=== PATIENT | male | born 1955 | race Caucasian/White ===

== ENCOUNTER 2017-06-17 16:15 | Emergency (ER) | payer BC, OTHER ==
[2017-06-17] MEDS ORDERED: DIPH,PERTUS(ACELL)TETVAC-LF 0.5 ML VIAL IM ONE (16:39)
--- NOTE | 2017-06-17 16:39 | ED ---
Wound/Laceration HPI - General Chief Complaint: Wound/Laceration Stated Complaint: rt arm injury/puncture Time Seen by Provider: 06/17/17 16:24 Source: patient, RN notes reviewed, old records reviewed Mode of arrival: ambulatory Limitations: no limitations - History of Present Illness Initial Comments: 61-year-old male presents emergency department with right forearm pain. Patient reports he was walking the dog and the dog lurched forward. He reports that his forearm got pulled forward and impaled by something. He thinks it was a tree. Patient states that he's had some pain with flexion and extension of the forearm and wrist. Patient denies any elbow pain. He reports he has some abnormal numbness or tingling going down his arm. Patient denies any thought of when his last tetanus was. He wants to have a repeat repeated today. Patient denies any other associated pain. - Related Data Previous Rx's Medication Instructions Recorded Cephalexin [Keflex] 500 mg PO Q6HR #28 cap 06/17/17 Allergies Allergy/AdvReac Type Severity Reaction Status Date / Time No Known Allergies Allergy Verified 06/17/17 16:23 Review of Systems ROS Statement: Those systems with pertinent positive or pertinent negative responses have been documented in the HPI. ROS Other: All systems not noted in ROS Statement are negative. Past Medical History Past Medical History: Hypertension History of Any Multi-Drug Resistant Organisms: None Reported Past Surgical History: Appendectomy, Orthopedic Surgery Additional Past Surgical History / Comment(s): shoulder, knee Past Psychological History: No Psychological Hx Reported Smoking Status: Never smoker Past Alcohol Use History: Daily Past Drug Use History: None Reported General Exam - General Exam Comments Initial Comments: 61-year-old male. No acute distress. Limitations: no limitations General appearance: alert, in no apparent distress Head exam: Present: atraumatic, normocephalic, normal inspection Eye exam: Present: normal appearance, PERRL, EOMI. Absent: scleral icterus, conjunctival injection, periorbital swelling ENT exam: Present: normal exam, mucous membranes moist Neck exam: Present: normal inspection. Absent: tenderness, meningismus, lymphadenopathy Respiratory exam: Present: normal lung sounds bilaterally. Absent: respiratory distress, wheezes, rales, rhonchi, stridor Cardiovascular Exam: Present: regular rate, normal rhythm, normal heart sounds. Absent: systolic murmur, diastolic murmur, rubs, gallop, clicks GI/Abdominal exam: Present: soft, normal bowel sounds. Absent: distended, tenderness, guarding, rebound, rigid Extremities exam: Present: normal inspection, full ROM, normal capillary refill , other (Patient has a laceration over the right forearm measuring approximately 4 cm. Some significant swelling and muscle involvement noted.). Absent: tenderness, pedal edema, joint swelling, calf tenderness Back exam: Present: normal inspection Neurological exam: Present: alert, oriented X3, CN II-XII intact Psychiatric exam: Present: normal affect, normal mood Course Vital Signs 06/17/17 16:17 Temperature 98.4 F Pulse Rate 83 Respiratory 18 Rate Blood Pressure 167/80 O2 Sat by Pulse 100 Oximetry Disposition Clinical Impression: Laceration of right forearm, Brachioradialis muscle tenderness, Hematoma Disposition: HOME SELF-CARE Condition: Good Instructions: Laceration (ED) Additional Instructions: Patient advised to follow with orthopedic physician in regards to muscle tear. Please return to the emergency room in 8-10 days to have sutures removed. Please leave wound covered for the first 24-48 hours and then leave open to air after that time. Please use clean soap and water to clean the suture area to prevent scabbing over the top of your sutures. Please watch for any signs of infection which may include but not limited to increased pain, swelling, redness , fever or chills. Please return to the emergency room if any signs of infection do occur. Please return to the emergency room for any other concerns or complications. Prescriptions: Cephalexin [Keflex] 500 mg PO Q6HR #28 cap Referrals: Robert Vega DO [Primary Care Provider] - 1-2 days Alexis Villar DO [Doctor of Osteopathic Medicine] - 1-2 days Time of Disposition: 17:26
--- NOTE | 2017-06-17 17:17 | XR ---
EXAMINATION TYPE: XR forearm RT DATE OF EXAM: 06/17/2017 CLINICAL HISTORY: Fall injury with pain. Open wound injury right proximal forearm. TECHNIQUE: Two views of the right forearm are obtained. COMPARISON: None. FINDINGS: There is no acute fracture or dislocation seen in the right radius or ulna. 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 The overlying soft tissue appears within normal limits without suspic ious radiodense foreign body seen. IMPRESSION: There is no acute fracture or dislocation seen in the right radius or ulna.
[2017-06-17] MEDS ORDERED: CEPHALEXIN 500MG STARTER PACK 4 CAP BTL PO STA (17:25)
[2017-06-17 17:37] VITALS: BP 166/68; PULSE 84; RESP 16; TEMP 98.2
== END 2017-06-17 17:36 | disposition home or self-care (01) ==
LOC: EC 16:15
DX: S51.811A Laceration without foreign body of right forearm, initial encounter (principal); S46.911A Strain of unspecified muscle, fascia and tendon at shoulder and upper arm level, right arm, initial encounter; Z23 Encounter for immunization; W19.XXXA Unspecified fall, initial encounter; Y93.K1 Activity, walking an animal
CPT/HCPCS: 90471; 90715; 99283

== ENCOUNTER → 2018-11-09 | Outpatient (CLI) | payer BC ==
--- NOTE | 2018-11-09 12:00 | P.STRESS ---
- Stress Test Note Stress Test Results/Findings: Exam Performed: stress echo exercise with con Exam Date: 11/09/18 Reason for Exam: FAMILY HX Height: 6 ft 1 in Weight: 95.254 kg Protocol: MORENITA Stage: 3 Duration of Exercise: 9:00 Resting Heart Rate: 70 Resting Blood Pressure: 144/57 Maximum Achieved Heart Rate: 157 Maximum Achieved Blood Pressure: 211/50 85% PMHR: 133 100% PMHR: 157 METS: 10.3 Technologist Comment: Stress Test Results/Findings: Baseline heart rate 70 beats a minute Baseline blood pressure 144/57 mmHg baseline 12-lead ECG shows sinus rhythm narrow QRS normal ST segments occasional PACs Patient exercised on a Morenita protocol for 9 minutes achieving a peak heart rate of 157 beats a minute. Mildly hypertensive response to exercise with a peak systolic blood pressure of 211 mmHg There is no ECG evidence for ischemia Baseline 2-D echo showed normal LV systolic function without segmental wall motion abnormalities At peak exercise there was excellent augmentation of over 1150 without development of any wall motion abnormalities At the recovery, no echocardiographic evidence for ischemia Impression Good exercise capacity on a Morenita protocol without ECG or echocardiographic evidence for ischemia
== END | disposition home or self-care (01) ==
LOC: RADNMMAIN 08:52
PROVIDERS: ATTEND Family Medicine
DX: Z13.6 Encounter for screening for cardiovascular disorders (principal); Z82.49 Family history of ischemic heart disease and other diseases of the circulatory system
CPT/HCPCS: 93005; 93351

== ENCOUNTER 2018-12-31 18:57 | Emergency (ER) | payer BC ==
[2018-12-31 19:22] VITALS: BP 162/92; PULSE 66; RESP 18; TEMP 98.6
--- NOTE | 2018-12-31 19:49 | ED ---
Fall HPI - General Chief Complaint: Fall Stated Complaint: back injury Time Seen by Provider: 12/31/18 19:48 Source: patient, RN notes reviewed, old records reviewed Mode of arrival: ambulatory - History of Present Illness Initial Comments: This is a 63-year-old male the ER for evaluation. Patient presents today for evaluation status post fall with rib and left shoulder pain. This was while trying to catch a controlled from a family mother. Patient again admits pain. 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 Witnessed: yes, by family Place Fall Occurred: home Loss of Consciousness: none Prolonged Down Time?: no Symptoms Prior to Fall: none Location: chest Severity: severe Severity scale (1-10): 7 Quality: sharp, stabbing Context: tripped/slipped Associated Symptoms: denies - Related Data Home Medications Medication Instructions Recorded Confirmed Doxylamine Succinate [Unisom] 25 mg PO HS 12/31/18 12/31/18 Losartan [Cozaar] 50 mg PO DAILY 12/31/18 12/31/18 Allergies Allergy/AdvReac Type Severity Reaction Status Date / Time No Known Allergies Allergy Verified 12/31/18 19:43 Review of Systems ROS Statement: Those systems with pertinent positive or pertinent negative responses have been documented in the HPI. ROS Other: All systems not noted in ROS Statement are negative. Past Medical History Past Medical History: Hypertension History of Any Multi-Drug Resistant Organisms: None Reported Past Surgical History: Appendectomy, Orthopedic Surgery Additional Past Surgical History / Comment(s): shoulder, knee Past Psychological History: No Psychological Hx Reported Smoking Status: Never smoker Past Alcohol Use History: Daily Past Drug Use History: None Reported General Exam Limitations: no limitations General appearance: alert, in no apparent distress, anxious Head exam: Present: atraumatic, normocephalic, normal inspection Eye exam: Present: normal appearance, PERRL, EOMI. Absent: scleral icterus, conjunctival injection, periorbital swelling ENT exam: Present: normal exam, mucous membranes moist Neck exam: Present: normal inspection. Absent: tenderness, meningismus, lymphadenopathy Respiratory exam: Present: normal lung sounds bilaterally. Absent: respiratory distress, wheezes, rales, rhonchi, stridor Cardiovascular Exam: Present: regular rate, normal rhythm, normal heart sounds. Absent: systolic murmur, diastolic murmur, rubs, gallop, clicks GI/Abdominal exam: Present: soft, normal bowel sounds. Absent: distended, tenderness, guarding, rebound, rigid Extremities exam: Present: normal inspection, full ROM, normal capillary refill. Absent: tenderness, pedal edema, joint swelling, calf tenderness Back exam: Present: normal inspection Neurological exam: Present: alert, oriented X3, CN II-XII intact Psychiatric exam: Present: normal affect, normal mood Skin exam: Present: warm, dry, intact, normal color. Absent: rash Course Vital Signs 12/31/18 19:18 Temperature 98.6 F Pulse Rate 66 Respiratory 18 Rate Blood Pressure 162/92 O2 Sat by Pulse 99 Oximetry Medical Decision Making - Medical Decision Making 60 female the ER for evaluation, troponin fall while diving to try and catch a ball. Patient has left-sided rib pain left rib contusion. X-rays negative for fracture or pneumothorax - Radiology Data Radiology results: report reviewed (X-ray left shoulder is negative for acute disease, x-ray of ribs is negative for traumatic injury), image reviewed Disposition Clinical Impression: Fall, Contusion of rib on left side Disposition: HOME SELF-CARE Condition: Good Instructions (If sedation given, give patient instructions): Rib Contusion (ED) Is patient prescribed a controlled substance at d/c from ED?: No Referrals: Robert Vega DO [Primary Care Provider] - 1-2 days
--- NOTE | 2018-12-31 19:53 | XR ---
EXAMINATION TYPE: XR ribs LT DATE OF EXAM: 12/31/2018 COMPARISON: NONE HISTORY: Left side pain. Fall. TECHNIQUE: 4 views FINDINGS: I see no pleural effusion or pneumothorax. Left lung is clear of infiltrate. There is no ev idence of a rib fracture. IMPRESSION: Negative left rib exam.
--- NOTE | 2018-12-31 19:54 | XR ---
EXAMINATION TYPE: XR shoulder complete LT DATE OF EXAM: 12/31/2018 COMPARISON: NONE HISTORY: Shoulder pain TECHNIQUE: 3 views FINDINGS: I see no fracture nor dislocation. Joint spaces are normal. There is no pathologic calcific ations. IMPRESSION: Negative left shoulder exam.
[2018-12-31] MEDS ORDERED: IBUPROFEN 800 MG TAB PO STA (20:01)
[2018-12-31] MEDS ORDERED: Acetaminophen-Codeine 300-30mg TAB PO STA (20:02)
[2018-12-31] MEDS ORDERED: ACET/COD 300 MG/30 MG STARTER PACK 6 TAB BTL PO STA (20:02)
[2018-12-31] MEDS: ACETAMINOPHEN TAB 325 MG TAB PO STA ×2 (20:04→20:11)
== END 2018-12-31 20:31 | disposition home or self-care (01) ==
LOC: EC 18:57
DX: S20.212A Contusion of left front wall of thorax, initial encounter (principal); M25.512 Pain in left shoulder; I10 Essential (primary) hypertension; Z53.29 Procedure and treatment not carried out because of patient's decision for other reasons; Z79.899 Other long term (current) drug therapy; W01.0XXA Fall on same level from slipping, tripping and stumbling without subsequent striking against object, initial encounter; Y93.64 Activity, baseball
CPT/HCPCS: 99284

== ENCOUNTER 2019-03-19 06:27 | Emergency (ER) | payer BC ==
[2019-03-19 06:39] VITALS: PULSE 116; RESP 16; TEMP 99.1
[2019-03-19 06:51] VITALS: BP 194/93
[2019-03-19] MEDS ORDERED: ACETAMINOPHEN TAB 500 MG TAB PO STA (07:25)
[2019-03-19] MEDS ORDERED: IBUPROFEN 600 MG TAB PO STA (07:25)
--- NOTE | 2019-03-19 07:31 | ED ---
General Adult HPI - General Chief complaint: Upper Respiratory Infection Stated complaint: Cough Time Seen by Provider: 03/19/19 06:59 Source: patient, RN notes reviewed Mode of arrival: ambulatory - History of Present Illness Initial comments: Patient is a pleasant 63-year-old male presenting to the emergency Department with complaints of cough. Symptoms have been occurring for past couple of days. Patient did get a prescription of azithromycin from his doctor and plan to starting that today. This morning patient developed fatigue and myalgias and shaking. Patient states he has not had that happen previously. Patient has associated chills. Patient says cough is been nonproductive. Patient states there may be some mild difficulty in breathing. No chest pain. No leg pain or leg swelling. Patient denies any previous history of asthma or COPD. No smoking history. - Related Data Home Medications Medication Instructions Recorded Confirmed Losartan [Cozaar] 50 mg PO DAILY 12/31/18 12/31/18 Previous Rx's Medication Instructions Recorded Albuterol Inhaler [Ventolin Hfa 2 puff INHALATION Q4HR PRN #1 03/19/19 Inhaler] inhaler Allergies Allergy/AdvReac Type Severity Reaction Status Date / Time No Known Allergies Allergy Verified 03/19/19 07:23 Review of Systems ROS Statement: Those systems with pertinent positive or pertinent negative responses have been documented in the HPI. ROS Other: All systems not noted in ROS Statement are negative. Constitutional: Reports: as per HPI, chills Eyes: Denies: eye pain ENT: Denies: ear pain Respiratory: Reports: cough Cardiovascular: Denies: chest pain Endocrine: Reports: fatigue Gastrointestinal: Denies: abdominal pain Genitourinary: Denies: dysuria Musculoskeletal: Denies: back pain Skin: Denies: rash Neurological: Denies: weakness Past Medical History Past Medical History: Hypertension History of Any Multi-Drug Resistant Organisms: None Reported Past Surgical History: Appendectomy, Orthopedic Surgery Additional Past Surgical History / Comment(s): shoulder, knee Past Psychological History: No Psychological Hx Reported Smoking Status: Never smoker Past Alcohol Use History: Daily Past Drug Use History: None Reported General Exam Limitations: no limitations General appearance: alert, in no apparent distress, other (Patient does feel warm on exam.) Head exam: Present: atraumatic Eye exam: Present: normal appearance, PERRL ENT exam: Present: normal oropharynx Neck exam: Present: normal inspection Respiratory exam: Present: rhonchi Cardiovascular Exam: Present: regular rate, normal rhythm GI/Abdominal exam: Present: soft. Absent: tenderness Extremities exam: Present: normal inspection. Absent: pedal edema, calf tenderness Neurological exam: Present: alert Psychiatric exam: Present: normal affect, normal mood Skin exam: Present: normal color Course Vital Signs 03/19/19 06:35 Temperature 99.1 F Pulse Rate 116 H Respiratory 16 Rate Blood Pressure 194/93 Medical Decision Making - Radiology Data Interpreted by me: Chest x-ray shows no acute process. Disposition Clinical Impression: Bronchitis Disposition: HOME SELF-CARE Condition: Stable Additional Instructions: Please follow-up with primary care physician in the next couple of days for recheck. Return for difficulty in breathing, uncontrolled fevers, worsening or changing symptoms or other concerns. [id number] Tylenol and Motrin as needed for fever. Prescriptions: Albuterol Inhaler [Ventolin Hfa Inhaler] 2 puff INHALATION Q4HR PRN #1 inhaler PRN Reason: Dyspnea Is patient prescribed a controlled substance at d/c from ED?: No Referrals: Robert Vega DO [Primary Care Provider] - 1-2 days Time of Disposition: 07:29
--- NOTE | 2019-03-19 07:53 | XR ---
EXAMINATION TYPE: XR chest 2V DATE OF EXAM: 03/19/2019 COMPARISON: 12/31/2018 HISTORY: Cough and congestion for 3 days with chest pain TECHNIQUE: Frontal and lateral views of the chest are obtained. FINDINGS: There is minimal strand-like left basilar probable atelectasis seen on the frontal view on ly. Mild multilevel degenerative changes of the thoracic spine are noted. Cardiomediastinal silhouett e is within normal limits. No pneumothorax or pleural effusion. Osseous structures are grossly intact . IMPRESSION: Minimal left basilar subsegmental atelectasis otherwise no acute cardiopulmonary patholo gy.
== END 2019-03-19 07:42 | disposition home or self-care (01) ==
LOC: EC 06:27
DX: J40 Bronchitis, not specified as acute or chronic (principal); I10 Essential (primary) hypertension
CPT/HCPCS: 71046; 99283

== ENCOUNTER → 2023-10-21 | Outpatient (CLI) | payer MEDICARE ==
--- NOTE | 2023-10-21 21:32 | MR ---
EXAMINATION TYPE: MR knee LT wo con DATE OF EXAM: 10/21/2023 COMPARISON: Radiograph 10/17/2023 HISTORY: 68-year-old male M25.562, Rt knee pain TECHNIQUE: Multiplanar, multisequence imaging of the left knee is performed without IV contrast. FINDINGS: The ACL and PCL are intact. Prominent edema along the MCL. There may be some loss of the fibers. Prominent increased signal and inhomogeneity of the popliteus tendon as well as the femoral attachmen t of the LCL proper. LCL complex otherwise intact. There is an oblique tear which extends throughout the posterior horn and body of the medial meniscus. Mild diffuse thinning of medial compartment articular cartilage volume.. Some reactive edema along t he peripheral lip of the medial tibial plateau. There is a large inner margin radial tear involving the body of the lateral meniscus. Lateral compart ment articular cartilage volume is maintained. The patellofemoral compartment articular cartilage appears maintained. Prominent enthesopathy at the patellar insertions of the extensor mechanism. Also at the tibial tuber osity. Some edema within the suprapatellar fat pad. There is a small knee joint effusion and a [id number]-[id number] sized leaking Moses's cyst measuring 5.8 x 1.7 cm. Some additional deep soft tissue edema could reflect some joint fluid extravasation. There is some edema involving the short head of the biceps femoris muscle in the lower thigh laterall y. Normal popliteal artery anatomy and muscle bulk. No suspicious bone marrow replacement. IMPRESSION: 1. Grade 2 MCL sprain with some slight loss of deep fibers. 2. Additional moderate popliteus tendinosis versus contusion. Additional grade 1 sprain femoral attac hment of the LCL proper. 3. Large oblique tear involving the posterior horn and body of the medial meniscus. Some reactive oss eous edema involving the peripheral lip of the medial tibial plateau. 4. Large inner margin radial tear involving the body of the lateral meniscus. 5. Small knee joint effusion with mild chronic synovitis. There is a small to moderate sized 5.8 x 1. 7 cm leaking Moses's cyst also present. 6. Some edema within the short head biceps femoris muscle lateral aspect of the lower thigh. This cou ld be reactive to altered biomechanics or could represent a mild muscle strain. 7. Edema in the suprapatellar fat pad is nonspecific but may be seen with fat pad impingement syndrom e.
== END | disposition home or self-care (01) ==
LOC: RADMRIMAIN 14:26
PROVIDERS: ATTEND Orthopaedic Surgery
DX: S83.412A Sprain of medial collateral ligament of left knee, initial encounter (principal); S83.242A Other tear of medial meniscus, current injury, left knee, initial encounter; S83.282A Other tear of lateral meniscus, current injury, left knee, initial encounter; M25.462 Effusion, left knee; M65.9 Synovitis and tenosynovitis, unspecified; M71.22 Synovial cyst of popliteal space [Baker], left knee; R60.0 Localized edema

== ENCOUNTER → 2023-11-13 | Outpatient (CLI) | payer MEDICARE ==
[2023-11-13 12:00] LABS: Basophils # (A) 0.09 X 10*3/uL (0.00-0.10); Basophils % (A) 1.8 %; Eosinophils # (A) 0.47 X 10*3/uL (0.04-0.35); Eosinophils % (A) 9.3 %; HCT 36.7 % (39.6-50.0); HGB 13.3 g/dL (13.0-17.0); Lymphocytes # (A) 1.81 X 10*3/uL (0.90-5.00); MCH 33.3 pg (27.0-32.0); MCHC 36.2 g/dL (32.0-37.0); Mean Platelet Volume 9.4 FL (9.5-12.2); Monocytes # (A) 0.47 X 10*3/uL (0.20-1.00); Monocytes % (A) 9.3 %; NRBC Per 100 WBC 0 X 10*3/uL (0.00-0.01); Neutrophils # (A) 2.18 X 10*3/uL (1.80-7.70); Neutrophils % (A) 43.4 %; Platelet Count 271 X 10*3/uL (140-440); RBC 3.99 X 10*6/uL (4.40-5.60); RDW 11.4 % (11.5-14.5); WBC 5.03 X 10*3/uL (4.50-10.00)
== END | disposition home or self-care (01) ==
LOC: LABWHC1 07:59
PROVIDERS: ATTEND Orthopaedic Surgery
DX: Z01.818 Encounter for other preprocedural examination (principal); I45.10 Unspecified right bundle-branch block; M23.92 Unspecified internal derangement of left knee
CPT/HCPCS: 36415; 80051; 85025; 93005

== ENCOUNTER → 2023-11-14 | Outpatient (CLI) | payer MEDICARE ==
[2023-11-14 18:05] LABS: Anion Gap 14.6 mmol/L (4.00-12.00); Carbon Dioxide 20.4 mmol/L (21.6-31.8); Potassium 4.2 mmol/L (3.5-5.5)
== END | disposition home or self-care (01) ==
LOC: LABPAT 13:12
PROVIDERS: ATTEND Orthopaedic Surgery
DX: Z01.812 Encounter for preprocedural laboratory examination (principal); M23.92 Unspecified internal derangement of left knee
CPT/HCPCS: 80051

== ENCOUNTER 2023-12-06 06:59 | Day surgery (SDC) | payer MEDICARE ==
[2023-12-01 15:07] VITALS: BMI 26.7
--- NOTE | 2023-12-05 11:40 | HP ---
HISTORY AND PHYSICAL DATE OF SURGERY: 12/06/2023. Lit Mcgee is a 68-year-old gentleman, seen with progressive left knee pain. We discussed options. He elected to proceed with left knee arthroscopy. Consent was obtained. PAST MEDICAL HISTORY: Hypertension. PAST SURGICAL HISTORY: Shoulder arthroscopy. DAILY MEDICATIONS: Losartan. ALLERGIES: None. SOCIAL HISTORY: Denies tobacco use. PHYSICAL EVALUATION OF THE RIGHT KNEE: His range of motion is 0 to 130 degrees. He has a mild effusion. Tenderness along the medial and lateral joint lines. Positive medial Cecilia's. Positive lateral Cecilia's. His ligaments are stable. Hip rotation is without pain. His distal neurovascular exam is intact. IMAGING STUDIES: Radiographs of the left knee revealed mild osteoarthritis and intra-articular effusion. MRI of the left knee revealed medial and lateral meniscal tears and an effusion. IMPRESSION: 1. Internal derangement of left knee with medial and lateral meniscal tears. 2. Hypertension. PLAN: Left knee arthroscopy with partial medial/lateral meniscectomy and debridement. MMODL / IJN: [id number] /
[~2023-12-06 06:59] MED LIST: DEXAMETHASONE SOD PHOSPHATE 4 MG/ML 1 ML VIAL IV ONE; LIDOCAINE 1% (10MG/ML) FOR IV START INTRADERMA PRN; MIDAZOLAM 2 MG/2 ML VIAL IV PRN; ONDANSETRON 4 MG/2 ML VIAL IVP ONE
[2023-12-06] MEDS: LACTATED RINGERS 1,000 ML IV SCH (07:45)
[2023-12-06] MEDS ORDERED: PROPOFOL 10 MG/ML 20 ML VIAL IV ONE (08:19)
[2023-12-06] MEDS ORDERED: LIDOCAINE 1% INJ 10MG/ML (20 ML MDV) ONE (08:19)
[2023-12-06] MEDS ORDERED: fentaNYL (PF) 50 MCG/ML 2 ML AMP ONE (08:19)
[2023-12-06] MEDS ORDERED: MIDAZOLAM 2 MG/2 ML VIAL ONE (08:19)
[2023-12-06] MEDS: BUPIVACAINE (PF) 0.25% 30 ML VIAL SQ ONE ×2 (08:38→08:54)
--- NOTE | 2023-12-06 09:12 | P.OP ---
Date of Procedure: 12/06/23 Preoperative Diagnosis: Internal derangement left knee Postoperative Diagnosis: 1. Tear medial and lateral meniscus left knee 2. Reactive synovitis medial, lateral and suprapatellar compartments left knee Procedure(s) Performed: 1. Arthroscopic partial medial and lateral meniscectomy left knee 2. Arthroscopic partial synovectomy medial, lateral and suprapatellar compartments left knee Anesthesia: GETA, local Surgeon: Alexis Villar Estimated Blood Loss (ml): 5 Pathology: none sent Condition: stable Disposition: PACU Indications for Procedure: 68-year-old patient seen with progressive left knee pain. After having treatment options discussed, he elected to proceed with arthroscopy. Operative Findings: See description of procedure Description of Procedure: Patient was taken to the operative suite. Patient underwent a general anesthetic by the department of anesthesia. Patient was given preoperative antibiotics. The left lower extremity was placed in a well-padded arthroscopic leg huerta. The left leg was prepped and draped in the normal sterile orthopedic fashion. A lateral parapatellar and suprapatellar incision was made. Trochars were inserted. Arthroscopy was initiated. Suprapatellar pouch rev ealed diffuse thick reactive synovitis. The patellofemoral joint appeared to articular congruently. There was grade I chondromalacia of the patellofemoral joint without significant tearing. The scope was guided into the medial gutter. No loose bodies or plica were identified. The scope was then guided into the medial compartment. A medial parapatellar incision was made. Trocar inserted followed by probe. There was a complex tear involving the posterior horn of knee medial meniscus extending somewhat into the mid body. There was thick reactive synovitis anteriorly. There was grade I chondromalacia of the medial compartment without tears. I performed a partial medial meniscectomy getting down to stable meniscal tissue. I performed a partial synovectomy decompressing the reactive synovitis anteriorly. The residual meniscus was stable. There was good decompression of the synovitis. Scope and probe were then guided into the intercondylar notch. Cruciates were identified, probed and found to be stable. The scope and probe were then guided into lateral compartment. There was a radial tear mid bilateral meniscus. There was thick reactive synovitis anteriorly. There was no significant chondromalacia present. I performed a partial lateral meniscectomy getting down to stable meniscal tissue. I performed a partial synovectomy decompressing the reactive synovitis. The residual meniscus was stable. There was good decompression of the synovitis. The scope was in guided back into the suprapatellar compartment. I introduced a motorized shaver into the suprapatellar compartment. I performed a partial synovectomy. The shaver was removed. There was good decompression of the synovitis. I now took one more look around the entire knee, no residual debris. Instruments were now removed from the joint. The joint was infiltrated with .25% Marcaine. Steri-Strips were applied to the portal sites. Sterile dressings were applied. The patient was placed into a KELLY hose. No tourniquet was utilized. The patient was awakened, transferred to a bed and taken to recovery stable satisfactory condition.
[2023-12-06] MEDS: HYDROmorphone 0.5 MG/0.5 ML SYRINGE IVP PRN (09:18)
[2023-12-06 09:30] VITALS: TEMP 97.1
[2023-12-06] MEDS ORDERED: HYDROcodone/APAP 5-325MG 1 EACH TAB ONE (10:15)
[2023-12-06] MEDS: HYDROcodone/APAP 5-325MG 1 EACH TAB PO ONE (10:16)
[2023-12-06 10:33] VITALS: RESP 18
[2023-12-06 11:05] VITALS: BP 152/80; PULSE 67
== END 2023-12-06 11:11 | disposition home or self-care (01) ==
LOC: OR 06:59
PROVIDERS: ATTEND Orthopaedic Surgery
DX: S83.282A Other tear of lateral meniscus, current injury, left knee, initial encounter (principal); M65.862 Other synovitis and tenosynovitis, left lower leg; I10 Essential (primary) hypertension; M17.12 Unilateral primary osteoarthritis, left knee; W19.XXXA Unspecified fall, initial encounter
CPT/HCPCS: 29880; J2250; J0690; J2001; J3010; J2704; J1170; J0665

== ENCOUNTER → 2024-04-05 | Outpatient (CLI) | payer MEDICARE ==
--- NOTE | 2024-04-05 19:31 | MR ---
EXAMINATION TYPE: MR Prostate wo/w con DATE OF EXAM: 04/05/2024 10:24 AM COMPARISON: None. CLINICAL INDICATION:Male, 68 years old with history of R97.20 ELEVATED PROSTATE SPECIFIC ANTIGEN [PSA ]; Elevated PSA. TECHNIQUE: Multi-planar, multi-sequence imaging of the pelvis is performed prior to and following the uncomplicated administration of bolus intravenous gadolinium. CONTRAST: 8 Gadavist Interpretive Criteria: PI-RADS v2.1 SERUM PSA: 03-07-24 = 4.81 3- = 3.76 SURGICAL PATHOLOGY: No data available. FINDINGS: Prostatic dimensions: 3.8 x 3.6 x 2.5. cm. "Bullet" Volume:22.38 (PSA density=0.21 ng/mL/mL) CENTRAL GLAND (Central and Transition Zones/CZ+TZ): Multiple bilateral, heterogenous appearing hypertrophic stromal nodules, without suspicious lesion. M edian lobe hypertrophy with protrusion into the base of the bladder. (PI-RADS 2) PERIPHERAL ZONE (PZ): Right lateral peripheral zone mid gland higher DWI lower ADC lesion measuring 9 mm with arterial phas e enhancement. No definitive correlate on T2-weighted sequences. (PI-RADS 3) SEMINAL VESICLES (SV): Symmetric and unremarkable. PERIPROSTATIC TISSUES: Unremarkable. LYMPH NODES: No enlarged pelvic lymph node. REMAINING PELVIS: Bladder wall is within normal limits given distention. No abnormal free or organized intrapelvic fluid collection. No pathologic bowel dilation or mural thickening. No hernia visualized OSSEOUS STRUCTURES: No suspicious osseous abnormality. There is a biliary labral cyst near the right hip medially measuri ng up to 20 mm. IMPRESSION: 1. PI-RADS 3 Small area of higher DWI/low ADC signal in the Right lateral peripheral zone with arteri al phase enhancement without correlate on T2-weighted imaging. Area on DWI/postcontrast imaging measu res 9 mm. Findings could represent focal prostatitis versus underlying lesion which is not excluded a t this time. Short-term follow-up versus Tissue sampling recommended. 2. No suspicious osseous lesion. No lymphadenopathy. No evidence of prostate adenocarcinoma involving the periprostatic tissues. 3. Right perilabral cyst suggesting labral tear.
== END | disposition home or self-care (01) ==
LOC: RADMRIMAIN 06:34
PROVIDERS: ATTEND Urology
DX: I10 Essential (primary) hypertension (principal); N40.0 Benign prostatic hyperplasia without lower urinary tract symptoms; R68.82 Decreased libido
CPT/HCPCS: 72197; A9585

== ENCOUNTER 2024-06-04 11:30 | Day surgery (SDC) | payer MEDICARE ==
[2024-06-04] MEDS ORDERED: DEXAMETHASONE SOD PHOSPHATE 4 MG/ML 1 ML VIAL ONE ×2 (12:08)
[2024-06-04] MEDS ORDERED: ONDANSETRON 4 MG/2 ML VIAL ONE ×2 (12:08)
[2024-06-04] MEDS ORDERED: GENTAMICIN 40 MG/ML 2 ML VIAL ONE ×2 (12:08)
[2024-06-04] MEDS ORDERED: PROPOFOL 10 MG/ML 20 ML VIAL IV ONE (13:58)
[2024-06-04] MEDS ORDERED: LACTATED RINGERS 1,000 ML BAG ONE (14:00)
[2024-06-04] MEDS ORDERED: SODIUM CHLORIDE 0.9% 50 ML BAG IV ONE (14:00)
[2024-06-04] MEDS ORDERED: ceFAZolin 10 GM VIAL IVPB ONE (14:00)
--- NOTE | 2024-06-07 15:56 | PCN ---
PROCEDURE NOTE PREOPERATIVE DIAGNOSIS: Elevated PSA. POSTOPERATIVE DIAGNOSIS: Elevated PSA. OPERATION: MRI fusion prostate biopsy. COMPLICATIONS: None. CONDITION: Stable. SPECIMEN: Prostate biopsies. ESTIMATED BLOOD LOSS: 1 mL. INDICATION: This is a 68-year-old male with history of elevated PSA, underwent a prostate MRI that showed evidence of a PI-RADS 3 lesion; discussed with him given his PSA elevation and the finding on MRI, I do recommend proceeding with a prostate biopsy; discussed the risks of bleeding, infection, and sepsis. He understood all the risks and agreed to proceed. DESCRIPTION OF OPERATION: The patient was brought to the operating room, sedation was induced, he was placed on the stretcher in left lateral position, at this point the ultrasound probe was inserted per rectum, images of prostate were obtained, there were no abnormalities seen on ultrasound. At this point, attention was carried to the region of interest, a total of 3 biopsies were obtained of the region of interest, in addition 12 biopsies were obtained based on the standard template for prostate biopsies, at this point the ultrasound was withdrawn, there was no evidence of bleeding, all specimens were sent to Pathology. The patient tolerated the procedure well, was taken to Recovery in stable condition. MMODL / IJN: [id number] /
== END 2024-06-04 15:00 ==
LOC: OR 11:30
PROVIDERS: ATTEND Urology
DX: C61 Malignant neoplasm of prostate (principal); I10 Essential (primary) hypertension; G47.00 Insomnia, unspecified; Z79.899 Other long term (current) drug therapy
CPT/HCPCS: 88305

== ENCOUNTER → 2024-07-04 | Outpatient (CLI) | payer MEDICARE ==
--- NOTE | 2024-07-04 12:11 | NM ---
EXAMINATION TYPE: NM bone scan whole body DATE OF EXAM: 07/04/2024 COMPARISON: NONE CLINICAL INDICATION: Male, 68 years old with history of C61 PROSTATE CANCER; Delayed whole-body scanning was performed following the injection of 25.2 mCi Tc 99m MDP. Images acq uired 3 hours post injection. FINDINGS: The focal uptake in the shoulders, knees, hips, ankles, lumbar spine and pubic bone are likely degene rative in nature. Correlate with radiographs. There is no definite suspicious uptake for metastatic d isease IMPRESSION: Abnormal multifocal articular uptake in the shoulders, knees, wrists and lumbar spine likely degenera tive in nature. No definite evidence of metastatic disease. Correlate with plain radiographs or CT fo r confirmation. [facility], Workstation: [id number] 07/04/2024 12:08 PM
== END | disposition home or self-care (01) ==
LOC: RADNMMAIN 07:19
PROVIDERS: ATTEND Urology
DX: C61 Malignant neoplasm of prostate (principal)
CPT/HCPCS: 78306

== ENCOUNTER → 2024-07-22 | Outpatient (CLI) | payer MEDICARE ==
[2024-07-22 15:09] LABS: Appearance,Urine Clear (Clear); Bilirubin,Urine Negative (Negative); Blood,Urine Negative (Negative); Color,Urine Yellow (Yellow); Ketones,Urine Negative (Negative); Nitrite,Urine Negative (Negative); PH, Urine 6.5; Urobilinogen,Urine 0.2 E.U./DL
[2024-07-22 15:16] LABS: Blood Urea Nitrogen 17.4 mg/dL (9.0-27.0); Chloride 105 mmol/L (96-109); Glucose 106 mg/dL (70-110); Potassium 4.3 mmol/L (3.5-5.5); Sodium 140 mmol/L (135-145)
[2024-07-22 15:17] LABS: Calcium 9.1 mg/dL (8.7-10.3); Carbon Dioxide 23.9 mmol/L (21.6-31.8)
[2024-07-22 16:25] LABS: Basophils # (A) 0.08 X 10*3/uL (0.00-0.10); Basophils % (A) 1.4 %; Eosinophils # (A) 0.25 X 10*3/uL (0.04-0.35); Eosinophils % (A) 4.3 %; HCT 38.1 % (39.6-50.0); HGB 13.1 g/dL (13.0-17.0); Lymphocytes # (A) 1.28 X 10*3/uL (0.90-5.00); MCH 33.4 pg (27.0-32.0); MCHC 34.4 g/dL (32.0-37.0); MCV 97.2 FL (80.0-97.0); Mean Platelet Volume 9.1 FL (9.5-12.2); Monocytes # (A) 0.48 X 10*3/uL (0.20-1.00); Monocytes % (A) 8.2 %; NRBC Per 100 WBC 0 X 10*3/uL (0.00-0.01); Neutrophils # (A) 3.71 X 10*3/uL (1.80-7.70); Neutrophils % (A) 63.8 %; Platelet Count 279 X 10*3/uL (140-440); RBC 3.92 X 10*6/uL (4.40-5.60); WBC 5.82 X 10*3/uL (4.50-10.00)
== END | disposition home or self-care (01) ==
LOC: LABWHC1 09:21
PROVIDERS: ATTEND Urology
DX: Z01.818 Encounter for other preprocedural examination (principal); C61 Malignant neoplasm of prostate
CPT/HCPCS: 36415; 80048; 81003; 85025; 86850; 86900; 86901; 87086; 93005

== ENCOUNTER 2024-08-01 05:43 | Day surgery (SDC) | payer MEDICARE ==
[2024-07-26 09:01] VITALS: BMI 27.0
[2024-08-01] MEDS: IV FLUID CONTINUATION 1,000 ML IV ONE (06:18)
[2024-08-01] MEDS ORDERED: HYDROmorphone 0.5 MG/0.5 ML SYRINGE IVP PRN (07:00)
[2024-08-01] MEDS: fentaNYL (PF) 50 MCG/ML 2 ML AMP IVP STA ×2 (07:13→12:28)
[2024-08-01] MEDS: HEPARIN SODIUM,PORCINE 5,000 UNIT/ML 1 ML VIAL SQ PRN (07:22)
[2024-08-01] MEDS: ONDANSETRON 4 MG/2 ML VIAL IVP ONE (07:24)
[2024-08-01] MEDS: DEXAMETHASONE SOD PHOSPHATE 4 MG/ML 1 ML VIAL IV ONE (07:24)
[2024-08-01] MEDS: LACTATED RINGERS 1,000 ML IV SCH (07:32)
[2024-08-01] MEDS: LACTATED RINGERS 1,000 ML IV ONE ×2 (07:33→09:59)
[2024-08-01] MEDS ORDERED: GLYCOPYRROLATE 0.2 MG/ML 2 ML VIAL ONE (07:38)
[2024-08-01] MEDS ORDERED: SUCCINYLCHOLINE CHLORIDE 200 MG/10 ML VIAL IV ONE (07:38)
[2024-08-01] MEDS ORDERED: ROPIVACAINE 5 MG/ML 30 ML VIAL ONE (07:38)
[2024-08-01] MEDS ORDERED: ROCURONIUM 10 MG/ML (5 ML VIAL) IV ONE (07:38)
[2024-08-01] MEDS ORDERED: PROPOFOL 10 MG/ML 20 ML VIAL IV ONE (07:38)
[2024-08-01] MEDS ORDERED: SODIUM CHLORIDE 0.9% (PF) 10 ML VIAL ONE (07:38)
[2024-08-01] MEDS ORDERED: MIDAZOLAM 2 MG/2 ML VIAL ONE (07:38)
[2024-08-01] MEDS ORDERED: DEXAMETHASONE SOD PHOSPHATE 10 MG/ML 1 ML VIAL ONE (07:38)
[2024-08-01] MEDS ORDERED: fentaNYL (PF) 50 MCG/ML 2 ML AMP ONE (07:38)
[2024-08-01] MEDS ORDERED: LIDOCAINE 1% INJ 10MG/ML (20 ML MDV) ONE (07:38)
[2024-08-01] MEDS ORDERED: NEOSTIGMINE 1 MG/ML 10 ML VIAL ONE (07:38)
[2024-08-01] MEDS ORDERED: HYDROmorphone (PF) 1 MG/ML ONE (07:38)
[2024-08-01] MEDS ORDERED: KETOROLAC 15 MG/ML 1 ML VIAL ONE (07:38)
--- NOTE | 2024-08-01 07:39 | P.HPIHPCON ---
History of Present Illness H&P Date: 08/01/24 Chief Complaint: prostate cancer This is a 68-year-old male with history of Duncan 8 prostate cancer. Option of a robotic radical prostatectomy versus radiation therapy was discussed with him in detail, he agreed to proceed with a robotic radical prostatectomy, aware of the risk which includes but not limited to bleeding, infection, injury to nearby organs. Discussed also risk of urinary incontinence and erectile dysfunction. Risk of cancer recurrence and the need for additional treatment was also discussed. He understood all the risk and agreed to proceed Consent for Procedure: I have explained the operation/procedure to the patient, including the risks, benefits, side effects, alternative therapies (including not receiving the proposed treatment or service), the likelihood of the patient achieving his/her goals, and potential recuperation problems for the procedure/sedation/analgesia, as well as any blood products, if indicated. I also explained to the patient the risks, benefits and side effects of the alternatives, as well as the risks related to not receiving the proposed procedure, care, treatment, or services. Past Medical History Past Medical History: Cancer, Hypertension Additional Past Medical History / Comment(s): Prostate CA, Elevated PSA, "chronic kidney disease but don't have to do anything for it - normal for my age." History of Any Multi-Drug Resistant Organisms: None Reported Past Surgical History: Appendectomy, Orthopedic Surgery Additional Past Surgical History / Comment(s): shoulder, knee. 05/2024 MRI fusion prostate bx Past Anesthesia/Blood Transfusion Reactions: No Reported Reaction Smoking Status: Never smoker Medications and Allergies Home Medications Medication Instructions Recorded Confirmed Type Losartan [Cozaar] 50 mg PO QA 12/31/18 08/01/24 History Eszopiclone [Lunesta] 1.5 mg PO HS 03/19/19 08/01/24 History Multivitamins, Thera [Multivitamin 1 tab PO DAILY 12/01/23 08/01/24 History (formulary)] amLODIPine BESYLATE 2.5 mg PO HS 12/01/23 08/01/24 History Allergies Allergy/AdvReac Type Severity Reaction Status Date / Time No Known Allergies Allergy Verified 08/01/24 06:30 Surgical - Exam Vital Signs Temp Pulse Resp BP Pulse Ox 97.1 F L 65 18 147/72 99 08/01/24 06:14 08/01/24 06:14 08/01/24 06:14 08/01/24 06:14 08/01/24 06:14 - General no distress, no pain - Eyes normal ocular movement, no pale - ENT normal nares, normal mucosa - Respiratory normal expansion, normal respiratory effort - Abdomen Abdomen: soft, non tender Assessment and Plan Assessment: OR for robotic radical prostatectomy with bilateral pelvic lymph node dissection
[2024-08-01] MEDS: BUPIVACAINE (PF) 0.25% 30 ML VIAL SQ ONE (07:43)
[2024-08-01] MEDS: MIDAZOLAM 2 MG/2 ML VIAL IV STA (07:48)
[2024-08-01] MEDS ORDERED: ONDANSETRON 4 MG/2 ML VIAL IVP PRN (11:37)
--- NOTE | 2024-08-01 11:43 | P.OP ---
Date of Procedure: 08/01/24 Preoperative Diagnosis: Prostate cancer Postoperative Diagnosis: Same Procedure(s) Performed: Robotic assisted laparoscopic radical prostatectomy with bilateral pelvic lymph node dissection Implants: none Anesthesia: MARCO ANTONIO Surgeon: Ross Gould Estimated Blood Loss (ml): 100 Pathology: other (Prostate, bilateral seminal vesicle, right prostate base margin, bilateral pelvic lymph nodes) Condition: stable Disposition: PACU Indications for Procedure: This is a 68-year-old male with history of [place]in[place] 8 prostate cancer. Option of a robotic radical prostatectomy versus radiation therapy was discussed with him in detail, he agreed to proceed with a robotic radical prostatectomy, aware of the risk which includes but not limited to bleeding, infection, injury to nearby organs. Discussed also risk of urinary incontinence and erectile dysfunction. Risk of cancer recurrence and the need for additional treatment was also discussed. He understood all the risk and agreed to proceed Description of Procedure: After preoperative antibiotics were started, the patient was taken to the operating room. Anesthesia was induced and the patient was placed in supine position, with adequate padding of the pressure points, shoulders, back, legs and arms. He was then prepped and draped in the standard fashion. A critical pause was performed using two patient identifiers. A 16F carpio catheter was placed to gravity drainage. A pneumo-peritoneum was created with placement of a Veress needle to 20 mm Hg without complication, and a 8 Fr trocar was placed above the umbillicus. Under direct vision a 8mm robotic ports was placed lateral to each rectus slightly below the camera port. The left iliac fossa 8mm port was placed. The right client services assistant right iliac fossa 12mm port and right paramedian 5mm portwere placed. After the patient was placed in the trendelenberg position, the robot was then docked to the 8mm robotic ports and then each robotic arm and tower was checked in relation to the patient's legs and hands to avoid inadvertent compression. The peritoneal cavity was inspected. An inverted U-shaped incision began laterally to the left medial umbilical ligament and extended high across the midline to the right umbilical ligament. The limbs of the "U" extended to the level of the vasa on both sides. We next developed the preperitoneal space and the space of Retzius. Cautery was used to dissected the bladder away from the prostate. After the anterior bladder neck was incised and the bladder entered the the posterior bladder neck was exposed and the ureteral orifces identified. The posterior bladder neck was then incised and dissected away from the prostate. The vas and the seminal vesicles were now exposed and dissected to their insertions into the prostate and were not spared. The posterior layer of the Denonvillier's fascia was incised to enter kinsey the plane between prostate and perirectal fat. Each lateral pedicle was controlled with vessel sealer. Complete nerve preservation was performed on the left no nerve preservation was performed on the right patient had a significant fibrotic reaction on the right, given this finding and given the evidence of Pia 8 cancer on that side a frozen was obtained of the base margin, and came back negative for malignancy. The puboprostatic ligament was incised where it inserted into the apex of the prostate and a plane between urethra and dorsal venous complex developed to expose the anterior urethral surface. The anterior wall of the urethra was transected with the cut setting a few millimeters distal to the apex of the prostate. The dorsal vein was ligated using 3-0 V lock bilateral obturator and external iliac lymph node packets were carefully dissected after careful visualization of the hypogastric artery and obturator nerve. There was careful attention paid to hemostasis with judicious use of cautery. The urethrovesical anastomosis was performed . the posterior denovillers was reapproximated using 3-0 V lock. A 6 and 6 inch 3-0 V-Lock suture was used to anastomose the urethra and bladder, starting at the 6:00 posterior position. Mucosa was secured in every stitch, to ensure a mucosa to mucosa anastomosis. The stitch was regularly cinched and the anastomosis tightened. Care was taken to not violate the ureteral orifices. The Carpio catheter was advanced, the bladder filled, and the anastomosis was tested, as described above. Anastomsis was watertight at 150 mL The periumbilical fascia was closed with 1-0-PDS suture in figure of 8 fashion. All ports were closed with a subcuticular 4-0 monocryl and Dermabond. Sponge, instrument, and needle counts were correct at the end of the case x2. All specimens including prostate and lymph nodes were sent to pathology for diagnosis and will be available in a week. The patient tolerated the surgery well and without complication. He awoke without difficulty and was taken to the recovery room in stable condition
--- NOTE | 2024-08-01 12:19 | P.ANPRN ---
Procedure Note - Anesthesia - Nerve Block Performed Bilateral Erector Spinae Single Time Out Performed: Yes ([id number]) Date of Procedure: 08/01/24 Procedure Start Time: 07:13 Procedure Stop Time: :18 Location of Patient: PreOp Indication: Acute Post-Operative Pain, Requested by Surgeon Specifically requested for management of pain by : Ross Gould Sedation Type: Sedate with meaningful contact maintained Preparation: Sterile Prep Position: Supine Catheter: None Needle Types: Pajunk Needle Gauge: 21 Ultrasound used to visualize needle placement: Yes Ultrasound used to observe medication spread: Yes Injectate: 0.5% Ropivacaine (see comment for volume) (15cc +5cc nacl pf each side) Blood Aspirated: No Pain Paresthesia on Injection Noted: No Resistance on Injection: Normal Image Stored and Saved: Yes Events: Uneventful and Well Tolerated
[2024-08-01] MEDS: MIDAZOLAM 1 MG/ML 5 ML VIAL IV STA (12:28)
[2024-08-01] MEDS ORDERED: ARTIFICIAL TEARS-HYPROMELLOSE DROPS 15 ML BTL BOTH EYES PRN (13:06)
[2024-08-01] MEDS: KETOROLAC 15 MG/ML 1 ML VIAL IVP SCH (13:07)
[2024-08-01] MEDS: DEXTROSE 5%-0.45% NACL 1,000 ML IV SCH (13:07)
[2024-08-01] MEDS: HEPARIN SODIUM,PORCINE 5,000 UNIT/ML 1 ML VIAL SQ SCH (17:47)
[2024-08-01] MEDS: BENZOCAINE/MENTHOL LOZENG 1 EACH LOZENGE MUCOUS MEM PRN (18:47)
[2024-08-01] MEDS: HYDROcodone/APAP 5-325MG 1 EACH TAB PO PRN (18:47)
[2024-08-01] MEDS: amLODIPine 2.5 MG TAB PO SCH (21:46)
[2024-08-01] MEDS: TEMAZEPAM 15 MG CAP PO SCH (21:46)
[2024-08-02] MEDS: LOSARTAN 50 MG TAB PO SCH (07:55)
[2024-08-02 08:27] VITALS: BP 159/79; PULSE 63; RESP 20; TEMP 98.7
== END 2024-08-02 10:09 | disposition home or self-care (01) ==
LOC: OR 05:43 → 4SSUR 11:44 → OR 08-02 10:09
PROVIDERS: ATTEND Urology
CPT/HCPCS: 64999; 88307; 88309; 88331

== ENCOUNTER → 2025-02-12 | Outpatient (CLI) | payer MEDICARE | END | disposition home or self-care (01) | LOC: LABWHC1 07:01 | PROVIDERS: ATTEND Urology | DX: C61 Malignant neoplasm of prostate (principal) | CPT/HCPCS: 36415; 84153 ==